=== PATIENT | female | born 1965 | race Hispanic/Latino ===

== ENCOUNTER 2019-02-19 10:55 | Inpatient (IN) | payer BC ==
[~2019-02-19] VITALS: Ht 160 cm; Wt 70.3 kg
[~2019-02-19 10:55] MED LIST: ADDERALL 20 MG20 MG PO; ZOLOFT50 MG PO
--- OUTSIDE RECORDS SUMMARY | 2019-02-19 11:03 | XMS REPORT ---
Author Author [facility] Address Unknown Phone Unavailable Care Team Providers Care Compliance Advisor Name Role Phone Unavailable Unavailable Payers Payer Name Policy Type Policy Number Effective Date Expiration Date Problems This patient has no known problems. Allergies, Adverse Reactions, Alerts Allergy Name Allergy Type Status Severity Reaction(s) Onset Date Inactive Date Treating Clinician Comments No Known Allergies DA Active U 2018-01-09 00:00:00 No Known Allergies DA Active U 2016-08-23 00:00:00 Medications This patient has no known medications. Results Test Description Test Time Test Comments Text Results Atomic Results Result Comments - CT C-SPINE W/O CONTRAST 2018-04-21 18:18:00 Name: SOFI BASURTO [facility] : 1965 Age/S: 52 / F [address] Unit #: [id number] Loc: [place] [address] Phys: Katia Suarez MULTIPLE PRESSURE RIVETER OPERATOR Acct: [id number] Dis Date: Status: REG ER PHONE #: [phone] Exam Date: 04/21/2018 1728 FAX #: [phone] Reason: [facility] EXAMS: CPT CODE: [id number] CT C-SPINE W/O CONTRAST 41208 HISTORY: [facility] TECHNIQUE: Noncontrast 2.[address] of the head, face, and cervical spine. Examination acquired within 24 hours of arrival. Automated exposure control for dose reduction. COMPARISON: MR of the cervical spine March 20, 2016 FINDINGS: No acute hemorrhage. No intracranial mass, mass effect, or midline shift. No CT evidence of acute infarct. Ortega-white matter differentiation is preserved. No hydrocephalus. No extra-axial fluid collection. Visualized paranasal sinuses are clear. Mastoid air cells and middle ear cavities are clear. Orbital contents are unremarkable. Postsurgical changes of craniotomy are noted in the right occipital bone at the level of the posterior fossa. There is a fracture in the inferior wall of the right orbit herniation of the inferior rectus muscle. However the ipsilateral maxillary sinus is clear suggesting that this may be an old finding. The remaining right orbital cevallos are within normal limits. Left orbital cevallos are unremarkable. There is hardware in the maxilla and mandible which may be from repair of a prior fracture. No acute fracture or subluxation of the cervical spine. Degenerative changes of the cervical spine with height loss of the C4-C5 and C5-C6 intervertebral disc spaces and the C5 vertebral body are noted. There is mild left-sided foraminal narrowing at C3-C4 and mild bilateral foraminal narrowing at C5-C6. IMPRESSION: 1. No acute intracranial process. 2. Fracture of the inferior wall of the right orbit with herniation of the inferior rectus muscle. The ipsilateral sinus is clear however suggesting that this may not be an acute finding. 3. Mild degenerative changes of the cervical spine as described above. PAGE 1 Signed Report (CONTINUED) Name: SOFI NELSON [facility] : 1965 Age/S: 52 / F [address] Unit #: [id number] Loc: [place] [address] Phys: Katia Suarez NP Acct: [id number] Dis Date: Status: REG ER PHONE #: [phone] Exam Date: 04/21/2018 1728 FAX #: [phone] Reason: [facility] EXAMS: CPT CODE: [id number] CT C-SPINE W/O CONTRAST 40440 <Continued> at 1818 Reported and signed by: Iker Allred MD CC: Katia Suarez MULTIPLE PRESSURE RIVETER OPERATOR; Pola Hardy Technologist:Lupis Salgado RT(R) CTDI: DLP: Trnscb Date/Time: 04/21/2018 (1817) [email or web address] Orig Print D/T: S: 04/21/2018 (1822) CTDI: DLP: PAGE 2 Signed Report - CT MAXIFAC W/O CNT 2018-04-21 18:18:00 Name: SOFI BASURTO [facility] : 1965 Age/S: 52 / F [address] Unit #: [id number] Loc: [place] [address] Phys: Katia Suarez MULTIPLE PRESSURE RIVETER OPERATOR Acct: [id number] Dis Date: Status: REG ER PHONE #: [phone] Exam Date: 04/21/2018 1728 FAX #: [phone] Reason: R maxillary pain sp fall EXAMS: CPT CODE: [id number] CT MAXIFAC W/O CNT 11904 HISTORY: [facility] TECHNIQUE: Noncontrast 2.[address] of the head, face, and cervical spine. E xamination acquired within 24 hours of arrival. Automated exposure control for dose reduction. COMPARISON: MR of the cervical spine March 20, 2016 FINDINGS: No acute hemorrhage. No intracranial mass, mass effect, or midline shift. No CT evidence of acute infarct. Ortega-white matter differentiation is preserved. No hydrocephalus. No extra-axial fluid collection. Visualized paranasal sinuses are clear. Mastoid air cells and middle ear cavities are clear. Orbital contents are unremarkable. Postsurgical changes of craniotomy are noted in the right occipital bone at the level of the posterior fossa. There is a fracture in the inferior wall of the right orbit herniation of the inferior rectus muscle. However the ipsilateral maxillary sinus is clear suggesting that this may be an old finding. The remaining right orbital cevallos are within normal limits. Left orbital cevallos are unremarkable. There is hardware in the maxilla and mandible which may be from repair of a prior fracture. No acute fracture or subluxation of the cervical spine. Degenerative changes of the cervical spine with height loss of the C4-C5 and C5-C6 intervertebral disc spaces and the C5 vertebral body are noted. There is mild left-sided foraminal narrowing at C3-C4 and mild bilateral foraminal narrowing at C5-C6. IMPRESSION: 1. No acute intracranial process. 2. Fracture of the inferior wall of the right orbit with herniation of the inferior rectus muscle. The ipsilateral sinus is clear however suggesting that this may not be an acute finding. 3. Mild degenerative changes of the cervical spine as described above. PAGE 1 Signed Report (CONTINUED) Name: SOFI BASURTO [facility] : 1965 Age/S: 52 / F [address] Unit #: [id number] Loc: [place] [address] Phys: Katia Suarez MULTIPLE PRESSURE RIVETER OPERATOR Acct: [id number] Dis Date: Status: REG ER PHONE #: [phone] Exam Date: 04/21/2018 1728 FAX #: [phone] Reason: R maxillary pain sp fall EXAMS: CPT CODE: [id number] CT MAXIFAC W/O CNT 93861 <Continued> at 1818 Reported and signed by: Iker Allred MD CC: Katia Suarez NP; Pola Hardy Technologist:Lupis Salagdo RT(R) CTDI: DLP: Trnscb Date/Time: 04/21/2018 (1817) [email or web address] Orig Print D/T: S: 04/21/2018 (1821) CTDI: DLP: PAGE 2 Signed Report - CT HEAD/BRAIN W/O CONT 2018-04-21 18:18:00 Name: SOFI BASURTO [facility] : 1965 Age/S: 52 / F [address] Unit #: [id number] Loc: [place] [address] Phys: Katia Suarez NP Acct: [id number] Dis Date: Status: REG ER PHONE #: [phone] Exam Date: 04/21/2018 1728 FAX #: [phone] Reason: [facility] EXAMS: CPT CODE: [id number] CT HEAD/BRAIN W/O CONT 29401 HISTORY: [facility] TECHNIQUE: Noncontrast 2.[address] of the head, face, and cervical spine. Examination acquired within 24 hours of arrival. Automated exposure control for dose reduction. COMPARISON: MR of the cervical spine March 20, 2016 FINDINGS: No acute hemorrhage. No intracranial mass, mass effect, or midline shift. No CT evidence of acute infarct. Ortega-white matter differentiation is preserved. No hydrocephalus. No extra-axial fluid collection. Visualized paranasal sinuses are clear. Mastoid air cells and middle ear cavities are clear. Orbital contents are unremarkable. Postsurgical changes of craniotomy are noted in the right occipital bone at the level of the posterior fossa. There is a fracture in the inferior wall of the right orbit herniation of the inferior rectus muscle. However the ipsilateral maxillary sinus is clear suggesting that this may be an old finding. The remaining right orbital cevallos are within normal limits. Left orbital cevallos are unremarkable. There is hardware in the maxilla and mandible which may be from repair of a prior fracture. No acute fracture or subluxation of the cervical spine. Degenerative changes of the cervical spine with height loss of the C4-C5 and C5-C6 intervertebral disc spaces and the C5 vertebral body are noted. There is mild left-sided foraminal narrowing at C3-C4 and mild bilateral foraminal narrowing at C5-C6. IMPRESSION: 1. No acute intracranial process. 2. Fracture of the inferior wall of the right orbit with herniation of the inferior rectus muscle. The ipsilateral sinus is clear however suggesting that this may not be an acute finding. 3. Mild degenerative changes of the cervical spine as described above. PAGE 1 Signed Report (CONTINUED) Name: SOFI NELSON [facility] : 1965 Age/S: 52 / F [address] Unit #: [id number] Loc: [place] [address] Phys: Katia Suarez NP Acct: [id number] Dis Date: Status: REG ER PHONE #: [phone] Exam Date: 04/21/2018 1728 FAX #: [phone] Reason: [facility] EXAMS: CPT CODE: [id number] CT HEAD/BRAIN W/O CONT 79098 <Continued> at 1818 Reported and signed by: Iker Allred MD CC: Katia Suarez MULTIPLE PRESSURE RIVETER OPERATOR; Pola Hardy Technologist:Lupis Salgado RT(R) CTDI: DLP: Trnscb Date/Time: 04/21/2018 (1817) [email or web address] Orig Print D/T: S: 04/21/2018 (1821) CTDI: DLP: PAGE 2 Signed Report CBC W/AUTO DIFF 2018-03-22 15:14:00 WHITE BLOOD CELL (test code=WBC) 6.7 K/mm3 4.5-12.5 RED BLOOD CELL (test code=RBC) 4.79 mill/mm3 3.7-5.2 HEMOGLOBIN (test code=HGB) 12.8 gram/dL 11.5-15.5 HEMATOCRIT (test code=HCT) 43.4 % 36.0-46.0 MEAN CELL VOLUME (test code=MCV) 90.6 fL 80-98 MEAN CELL HGB (test code=MCH) 26.7 picogram 27.0-33.0 MEAN CELL HGB CONCETRATION (test code=MCHC) 29.5 gram/dL 33.0-36.0 RED CELL DISTRIBUTION WIDTH (test code=RDW) 12.9 % 11.6-16.2 RED CELL DISTRIBUTION WIDTH SD (test code=RDW-SD) 43.0 fL 37.0-51.0 PLATELET COUNT (test code=PLT) 305 K/mm3 150-450 MEAN PLATELET VOLUME (test code=MPV) 10.3 fL 6.7-11.0 NEUTROPHIL % (test code=NT%) 56.5 % 39.0-69.0 IMMATURE GRANULOCYTE % (test code=IG%) 0.3 % 0.0-5.0 LYMPHOCYTE % (test code=LY%) 35.4 % 25.0-55.0 MONOCYTE % (test code=MO%) 6.1 % 0.0-10.0 EOSINOPHIL % (test code=EO%) 1.3 % 0.0-5.0 BASOPHIL % (test code=BA%) 0.4 % 0.0-1.0 NUCLEATED RBC % (test code=NRBC%) 0.0 % 0-0 NEUTROPHIL # (test code=NT#) 3.76 K/mm3 1.8-7.7 IMMATURE GRANULOCYTE # (test code=IG#) 0.02 x10 3/uL 0-0.03 LYMPHOCYTE # (test code=LY#) 2.36 K/mm3 1.0-5.0 MONOCYTE # (test code=MO#) 0.41 K/mm3 0-0.8 EOSINOPHIL # (test code=EO#) 0.09 K/mm3 0.0-0.5 BASOPHIL # (test code=BA#) 0.03 K/mm3 0.0-0.2 NUCLEATED RBC # (test code=NRBC#) 0.00 K/mm3 0.0-0.1 MANUAL DIFF REQUIRED (test code=IFF) NO [id number] 15:09:00 RUN DATE: 01/11/18 [facility] PAGE 1 RUN TIME: 1509 Specimen Inqui ry RUN USER: INTERFACE PATIENT: SOFI MANNING ACCT #: [id number] LOC: [place] U #: [id number] AGE/SX: 52/F ROOM: RE01/10/18REG DR: Fabrizio Shields MD : 65 BED: DIS: STATUS: [facility] TLOC: SPEC #: [id number] RECD: 01/10/18 STATUS: YOAN REQ #: [id number] ASHLY: 01/10/18- [facility] DR: Fabrizio Shields MD ENTERED: 01/10/18-1316 SP TYPE: STOMACH OTHR DR: Roxanna Hardy MD ORDERED: GROSS COPIES TO: Fabrizio Shields MD [address] [place] [address] Pola Hardy MD [address] [place] [address] PROCEDURES: GROSS (12/23 03/10-1199) TISSUES: 1. DUODENUM, NOS - BX 2. ANTRAL BIOPSY - H -PYLORI 3. SIGMOID - POLYP 4. RECTUM, NOS - BX CLINICAL HISTORY COLLECTION DATE: 01/10/2018 ABDOMINAL PAIN ESOPHAGITIS/G ASTRITIS/HIATAL HERNIA/INTERNAL HEMORRHOIDS/RECTAL POLYPS/ S/P SLEEVE/DIVERTIC ULOSIS FINAL DIAGNOSIS Second portion of duodenum, biopsy: DUO DENAL MUCOSA WITH UNREMARKABLE VILLOUS ARCHITECTURE AND MILD CHRONIC IN FLAMMATION NO ACUTE INFLAMMATORY INFILTRATE PRESENT NO INTRAEPITH ELIAL INFLAMMATORY CELLS NEGATIVE FOR MALIGNANCY Gastric antru m, biopsy: REACTIVE/CHEMICAL GASTROPATHY, MILD FRAGMENTS OF GASTRI C MUCOSA WITH NO SIGNIFICANT PATHOLOGIC ALTERATION NEGATIVE FOR INTESTINA L METAPLASIA CONTINUED ON NEXT PAGE ------ ------RUN DATE: 01/11/18 [facility] PAGE 2 RUN TIME: 1509 Specimen Inquiry RUN USER: INTERFACE SPEC #: [id number] PATIENT: FIDELINA MANNINGA #[id number] (Continued) FINAL DIAGNOSIS (Continued) NEGATIVE FOR HELICOBACTER ORGANISMS NEGATIVE FOR MALIGNANCY Sigmoid colon polyp, biopsy: HYPERPLASTIC POLYP(S) NEGATIVE FOR MALIGNANCY Rectum, biopsy: HYPERPLASTIC POLYP(S) MILD ARTIFACTUAL DISTORTION PRESENT NEGATIVE FOR MALIGNANCY RRB/navin D 4)25275, 73330 MACROSCOPIC The first specimen is received in formalin, labeled with the patient's name, identified as "2nd p ortion duodenum BX," and consists of three sanders biopsy tissues measuring from 0 .2 to 0.6 cm each, entirely submitted as (1). The second specimen is recei andrés in formalin, labeled with the patient's name, identified as "Antrum BX", a nd consists of multiple sanders biopsy tissues measuring up to 0.7 cm in aggregate . It is entirely submitted as (2) for H E and Giemsa stains. The third specimen is received in formalin, labeled with the patient's name, identified as "Sigmoid colon polyp", and consists of sanders biopsy tissue measuring up to 0. 5 cm in aggregate, and is entirely submitted as (3). The fourthe specimen is received in formalin, labeled with the patient's name, identified as "rectu m", and consists of sanders biopsy tissue measuring 0.3 cm in aggregate, submitted as (4). GROSS PERFORMED AT [facility] [address] [place] [address] ([phone] MICROSCOP MICROSCOPIC PERFORMED AT [facility] All of the stains, inclu ding any controls performed, stain appropriately. CONTINUED ON NEXT PAGE RUN DATE: 01/11/18 [facility] PAGE 3 RUN TIME: 1509 Specimen Inquiry RUN USER: INTERFACE SPEC #: [id number] PATIENT: SOFI MANNING #[id number] (Continued)---- -------- MICROSCOPIC (Continued) [facility] [address] [place] [address] [phone])[phone] PERFORMI SITE Diagnosis performed at: [facility], [place] [address] [place] [address] -- Signed SIGNATURE ON FILE Dez Stallworth 01/11/18 1 509 END OF REPORT
[2019-02-19] MEDS ORDERED: GENTAMICIN 80MG/NS 100 ML 200 ML IV ONE (11:09)
[2019-02-19] MEDS ORDERED: PIPER-TAZ 3.375 GM 50 ML ONE (11:09)
[2019-02-19] MEDS ORDERED: INDIGOTINDISULFONATE SODIUM 8 MG/ML AMP IJ ONE (12:35)
[2019-02-19] MEDS ORDERED: IOPAMIDOL 300MG/ML 50ML INFUS..BTL IV ONE (12:35)
[2019-02-19] MEDS ORDERED: BACITRACIN 50,000 UNIT VIAL ONE (12:35)
[2019-02-19] MEDS ORDERED: BUPIVACAINE 0.5%/EPI 30 ML SDV INJ ONE (12:35)
[2019-02-19] MEDS ORDERED: PROPOFOL IV EMULSION 10 MG/ML 20 ML VIAL ONE (12:48)
[2019-02-19] MEDS ORDERED: ONDANSETRON HCL INJ 2MG/ML 2ML 2 MG/ML VIAL ONE (12:48)
[2019-02-19] MEDS ORDERED: SEVOFLURANE INHAL SOLN 250 ML PEN BTL ONE (12:48)
[2019-02-19] MEDS ORDERED: DEXAMETHASONE SOD PHOS INJ 4 MG/ML VIAL ONE (12:48)
[2019-02-19] MEDS ORDERED: LIDOCAINE HCL 2% LOCAL INJ 5 ML SDV VIAL INJ ONE (12:48)
[2019-02-19] MEDS ORDERED: ACETAMINOPHEN 1000 MG/100 ML IV ONE (12:48)
[2019-02-19] MEDS ORDERED: MUPIROCIN 2% OINT 22 GM TUBE ONE (14:49)
[2019-02-19] MEDS: D5.45%NS/KCL 20MEQ 1,000 ML IV SCH ×3 (15:19→23:19)
[2019-02-19] MEDS ORDERED: DIPHENHYDRAMINE HCL 25 MG CAP PO PRN (15:30)
[2019-02-19] MEDS ORDERED: MORPHINE SULFATE 1 MG/ML 30ML PCA IV PRN (15:30)
[2019-02-19] MEDS ORDERED: ONDANSETRON HCL INJ 2MG/ML 2ML 2 MG/ML VIAL IV PRN (15:30)
[2019-02-19] MEDS ORDERED: NALOXONE HCL INJ 0.4 MG/ML AMP IV PRN (15:30)
[2019-02-19] MEDS ORDERED: FENTANYL CITRATE/PF 100MCG/2 ML INJ ONE ×2 (15:50→19:41)
--- NOTE | 2019-02-19 16:33 | NUR ---
pt admitted from pacu to room 115. Pt transferred to bed, laboratory inspector verified with pacu nurse. scd's placed on pt. pt surgical incision dry and intact
[2019-02-19 16:45] VITALS: BP 133/64
--- NOTE | 2019-02-19 17:50 | NUR ---
dr thomas called to reconcile pt home meds
[2019-02-19] MEDS: PHENAZOPYRIDINE HCL 100 MG TAB PO SCH (18:28)
[2019-02-19] MEDS: DOCUSATE SODIUM 100 MG CAP PO SCH (18:28)
[2019-02-19] MEDS ORDERED: BREO ELLIPTA 21 EACH INH (18:37)
--- NOTE | 2019-02-19 18:54 | NUR ---
report given to on coming shift
--- NOTE | 2019-02-19 19:35 | NUR ---
Received change of shift report from AM nurse. Walking rounds completed.
[2019-02-19] MEDS ORDERED: MIDAZOLAM HCL 2 MG/2 ML VIAL ONE (19:41)
[2019-02-19 20:00] VITALS: BP 129/52
[2019-02-19 20:59] LABS: ANION GAP 12.6 mmol/L (8-16); BLOOD UREA NITROGEN 10 mg/dL (7-26); BUN/CREATININE RATIO 15 (6-25); CALCIUM 8.9 mg/dL (8.4-10.2); CARBON DIOXIDE 26 mmol/L (22-29); CHLORIDE 103 mmol/L (98-107); CREATININE, SERUM 0.66 mg/dL (0.57-1.11); EST GLOMERULAR FILTRATION RATE > 60 ML/MIN (60-); GLUCOSE 172 mg/dL (74-118); POTASSIUM 4.6 mmol/L (3.5-5.1); SODIUM 137 mmol/L (136-145)
[2019-02-19] MEDS: PIPER-TAZ 3.375 GM 50 ML IV SCH (22:00)
[2019-02-20] VITALS (7 sets, daily range): BP systolic 104–125; BP diastolic 48–59
--- NOTE | 2019-02-20 00:17 | History and Physical ---
HISTORY OF PRESENT ILLNESS: A 53-year-old female admitted to the hospital after a cystocele repair and the patient is here for postsurgical evaluation and control. The patient has a history of cystocele, taken down for OR for cystocele repair in retrograde. The patient is currently back from the OR and sent home for postsurgical care. PAST MEDICAL HISTORY: History of depression, history of recent upper respiratory tract infection. MEDICATIONS: Medicines she takes at home are Adderall 20 mg twice a day, sertraline 50 mg daily, and alprazolam as needed for anxiety. FAMILY HISTORY: Positive for hypertension in mother and father, and father with coronary artery disease. SOCIAL HISTORY: No EtOH. No IV drug abuse. 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 REVIEW OF SYSTEMS: Negative for chest pain. No shortness of breath. No nausea, vomiting, or diarrhea. No constipation. No rectal bleeding. No hematochezia. No hematemesis. Cystocele present, status post repair. PHYSICAL EXAMINATION: VITAL SIGNS: Temperature is 97.1, pulse of 65, respirations 15, blood pressure is 133/64, pulse oximetry of 100% on room air. HEENT: Normocephalic, atraumatic. The patient is sleepy, post sedation. CVS: S1 and S2 normal. Regular rate and rhythm. ABDOMEN: Surgical scars present. EXTREMITIES: No clubbing, no cyanosis, no edema. ASSESSMENT: Ms. Jaki Sharma, date of is 1965, admitted to the hospital for post surgery for cystocele repair in retrograde. The patient also had a sling. PLAN: Plan is to continue with postsurgical care. SCDs and SHRUTI hoses are applied. Zosyn 3.375 g were given and gentamicin were given presurgically on-call to surgery. The patient will continue to be monitored. CBC and CMP tomorrow and continue with current postoperative care. Further recommendation per clinical course. The patient is medically stable at this time. We will continue monitoring her vitals and analyze on a regular basis. MD JAME Frank/MODL /[id number]
[2019-02-20 05:29] LABS: BASOPHILS % 0.1 % (0.0-1.0); HEMATOCRIT 35.6 % (34.2-44.1); HEMOGLOBIN 11.3 g/dL (12.0-16.0); LYMPHOCYTES # (AUTO) 1.7 (1.0-3.2); LYMPHOCYTES % 17.1 % (18.0-39.1); MEAN CORPUSCULAR HGB CONC 31.7 g/dL (31-35); MEAN CORPUSCULAR VOLUME 88.1 fL (81-99); MONOCYTES # (AUTO) 0.8 (0.2-0.8); MONOCYTES % 7.8 % (4.4-11.3); NEUTROPHILS # (AUTO) 7.4 (2.1-6.9); NEUTROPHILS % 74.7 % (38.7-80.0); PLATELET COUNT 252 x10e3/uL (140-360); RED BLOOD COUNT 4.04 x10e6/uL (3.6-5.1); RED CELL DISTRIBUTION WIDTH 12.3 % (11.7-14.4)
[2019-02-20] MEDS: PIPER-TAZ 3.375 GM 50 ML IV SCH ×3 (06:00→22:00)
--- NOTE | 2019-02-20 07:00 | NUR ---
received am report and rounds done. pt is alert resting in bed, no s/s of distress. call light within reach and instructed pt to call RN for help.
[2019-02-20 07:05] LABS: ANION GAP 11.1 mmol/L (8-16); BLOOD UREA NITROGEN 7 mg/dL (7-26); BUN/CREATININE RATIO 11 (6-25); CALCIUM 8.9 mg/dL (8.4-10.2); CARBON DIOXIDE 27 mmol/L (22-29); CHLORIDE 102 mmol/L (98-107); CREATININE, SERUM 0.62 mg/dL (0.57-1.11); EST GLOMERULAR FILTRATION RATE > 60 ML/MIN (60-); GLUCOSE 127 mg/dL (74-118); POTASSIUM 4.1 mmol/L (3.5-5.1); SODIUM 136 mmol/L (136-145)
[2019-02-20] MEDS: D5.45%NS/KCL 20MEQ 1,000 ML IV SCH ×3 (07:19→23:19)
--- NOTE | 2019-02-20 07:20 | Progress Note ---
DATE: 02/20/2019 SUBJECTIVE: The patient is a 53-year-old, status post cystocele repair and retrograde pyelogram. No complaints today. She has had some flatus and feeling hungry. The patient is on a clear liquid diet, is also on [employer]ORN[employer]UC[employer] on demand. The patient has no chest pain. No shortness of breath. Slept well and has been on IV hydration. Currently, the patient is on a [employer]ORN[employer]OD[employer] morphine pump, naloxone as needed, Zofran as needed, Pyridium and Zosyn were also given. OBJECTIVE: VITAL SIGNS: Temperature is 97.0, pulse 68, respirations of 18, blood pressure is 115/57, pulse oximetry of 96%. HEENT: Normocephalic and atraumatic. Pupils are reactive to light and accommodation. CVS: S1 and S2 are normal. Regular rate and rhythm. ABDOMEN: Nontender, nondistended. Bowel sounds are present. Teixeira catheter to gravity in seen. EXTREMITIES: No clubbing, no cyanosis, and/or no edema. LABORATORY VALUES: White count is 9.92, hemoglobin of 11.3, hematocrit of 35.7. Chemistries are pending. Yesterday's chemistries were within normal limits. ASSESSMENT: A 53-year-old female, status post cystocele repair with retrograde pyelogram. No complaints today. The patient has progressed well. Bowel sounds are positive. The patient should be discharged today pending urological evaluation. Further recommendation per clinical course. We will continue to monitor the patient. This is postoperative day #1 and fluids and advance diet as tolerated. MD JAME Frank/MODL /[id number]
[2019-02-20] MEDS: PHENAZOPYRIDINE HCL 100 MG TAB PO SCH ×3 (09:31→17:31)
[2019-02-20] MEDS: DOCUSATE SODIUM 100 MG CAP PO SCH ×2 (09:31→17:31)
[2019-02-20] MEDS: ACETAMINOPHEN/CODEINE 300MG - 30MG TAB PO PRN (13:35)
--- NOTE | 2019-02-20 13:50 | NUR ---
Visit made by the Spiritual Care Department Pastoral Visitor, Krystin Fuentes. PV provided pastoral presence, hospitality, and supportive listening. Pastoral Visitor informed pt/family of the scope of Assisted Living Nursing Director Services and availability. LOLY GAMBOA Putty Remover Spiritual Care Department O: [phone] Pager: [phone] ([phone] number calling from)
--- NOTE | 2019-02-20 19:10 | NUR ---
Received change of shift report from AM nurse. Walking rounds completed.
[2019-02-21] VITALS: BP 105/52
[2019-02-21] MEDS: ACETAMINOPHEN/CODEINE 300MG - 30MG TAB PO PRN (02:49)
[2019-02-21 04:00] VITALS: BP 117/52
[2019-02-21 05:24] LABS: BASOPHILS % 0.2 % (0.0-1.0); EOSINOPHILS % 0.5 % (0.0-6.0); HEMATOCRIT 36.7 % (34.2-44.1); HEMOGLOBIN 11.5 g/dL (12.0-16.0); LYMPHOCYTES # (AUTO) 3.2 (1.0-3.2); LYMPHOCYTES % 37.6 % (18.0-39.1); MEAN CORPUSCULAR HEMOGLOBIN 27.8 pg (28-32); MEAN CORPUSCULAR HGB CONC 31.3 g/dL (31-35); MEAN CORPUSCULAR VOLUME 88.6 fL (81-99); MONOCYTES # (AUTO) 0.6 (0.2-0.8); MONOCYTES % 7.4 % (4.4-11.3); NEUTROPHILS # (AUTO) 4.5 (2.1-6.9); NEUTROPHILS % 53.9 % (38.7-80.0); PLATELET COUNT 263 x10e3/uL (140-360); RED BLOOD COUNT 4.14 x10e6/uL (3.6-5.1); RED CELL DISTRIBUTION WIDTH 12.5 % (11.7-14.4)
[2019-02-21 05:41] LABS: ANION GAP 13.3 mmol/L (8-16); BLOOD UREA NITROGEN 9 mg/dL (7-26); BUN/CREATININE RATIO 14 (6-25); CALCIUM 9.3 mg/dL (8.4-10.2); CARBON DIOXIDE 28 mmol/L (22-29); CHLORIDE 105 mmol/L (98-107); CREATININE, SERUM 0.64 mg/dL (0.57-1.11); EST GLOMERULAR FILTRATION RATE > 60 ML/MIN (60-); GLUCOSE 95 mg/dL (74-118); POTASSIUM 4.3 mmol/L (3.5-5.1); SODIUM 142 mmol/L (136-145)
[2019-02-21] MEDS: PIPER-TAZ 3.375 GM 50 ML IV SCH (06:00)
--- NOTE | 2019-02-21 07:08 | NUR ---
Received patient lying in bed with eyes open. Respiration even and unlabored. Indwelling valdovinos catheter in placed, intact, with yellow-colored urine to drainage bag. Denies pain at this time.
--- NOTE | 2019-02-21 07:10 | NUR ---
Dr. Yael Whitman ordered to D/C valdovinos catheter and check residual, if more than 100 ml residual to notify him.
[2019-02-21] MEDS: D5.45%NS/KCL 20MEQ 1,000 ML IV SCH (07:19)
--- NOTE | 2019-02-21 07:52 | Progress Note ---
DATE: 02/21/2019 SUBJECTIVE: The patient is a 53-year-old female, who comes in status post a cystocele repair. Pain is controlled. The patient has no bowel movement yet. Bowel sounds are positive. She is eating. No complaints. Teixeira in place. No pain. OBJECTIVE: VITAL SIGNS: Temperature is 98.5, pulse of 84, respirations 17, blood pressure is 105/52, pulse ox of 96%. HEENT: Normocephalic and atraumatic. Pupils are reactive to light and accommodation. CVS: S1 and S2 normal. Regular rate and rhythm. ABDOMEN: Nontender, nondistended. EXTREMITIES: No clubbing, no cyanosis, no edema. Teixeira catheter to gravity. LABORATORY VALUES: White count is 8.4, hemoglobin of 11.5, hematocrit of 36.7. Chemistry; sodium 142, potassium 4.3, BUN of 9, creatinine 0.64. ASSESSMENT: 1. A 53-year-old female, status post cystocele repair with retrograde pyelogram. 2. History of depression. 3. History of anxiety. PLAN: Progression has been noted. The patient to be seen by Dr. Pacheco Whitman today. Plan to be discharged depending on Dr. Whitman's evaluation. This is postoperative day #2. Further recommendation per clinical course. We will continue with advancing diet and we will see her back in clinic in about a week's time. MD JAME Frank/MODL /[id number]
--- NOTE | 2019-02-21 07:55 | NUR ---
Discontinued indwelling valdovinos catheter as ordered, catheter tip intact, denies discomfort. Due to void is at 1355.
[2019-02-21 08:05] VITALS: BP 117/66
[2019-02-21] MEDS: DOCUSATE SODIUM 100 MG CAP PO SCH (08:45)
[2019-02-21] MEDS: PHENAZOPYRIDINE HCL 100 MG TAB PO SCH (08:45)
[2019-02-21] MEDS ORDERED: TYLENOL WITH C1 EACH PO (09:09)
[2019-02-21] MEDS ORDERED: LEVAQUIN500 MG PO (09:09)
--- NOTE | 2019-02-21 09:45 | NUR ---
Discontinue PIV to left FA. Catheter tip intact. No bleeding noted.
--- NOTE | 2019-02-21 10:00 | NUR ---
Patient voided 100 ml urine. Post void residual is 39 ML with bladder scanner.
[2019-02-21 10:03] VITALS: BP 117/66
--- NOTE | 2019-02-21 11:16 | NUR ---
Patient is to discharge to home today as ordered, prescription home meds given. Education given. Verbalized understanding. Transported to private vehicle at this time. Respiration even and unlabored without SOB. all personal belongings are taken.
--- NOTE | 2019-03-26 06:06 | Discharge Summary ---
HOSPITAL COURSE: The patient came in, status post ureterocele repair with sling. The patient was kept in the hospital for pain management. IV fluids were given. Home medication was started. The patient is also followed by Dr. Whitman. Vaginal pouch was discontinued. The patient was feeling better and the patient was discharged home. FINAL DIAGNOSIS: Urethrocele, status post repair with sling. For further information, look into the chart. For medicines on discharge, look into the medical reconciliation sheet. MD JAME Frank/MODL /[id number]
--- NOTE | 2019-04-03 04:51 | Operative Report ---
DATE OF PROCEDURE: SURGEON: Pacheco Whitman MD PREOPERATIVE DIAGNOSES: 1. Stress incontinence. 2. Large cystocele. POSTOPERATIVE DIAGNOSES: 1. Stress incontinence. 2. Large cystocele. OPERATION PERFORMED: 1. Cystocele repair. 2. Utilization of graft and cystocele repair. 3. Pubovaginal sling utilizing homograft. 4. Cystourethroscopy with bilateral ureteral catheterization and retrograde ureteropyelography (separate procedure performed for the hematuria and urinary tract infections). 5. Interpretation of retrograde ureteropyelography. 6. Supervision of fluoroscopy, no radiologist present. ANESTHESIA: General. COMPLICATIONS: None. CLINICAL SUMMARY: Jaki Sharma is a 53-year-old woman with a grade 2 cystocele and grade 2 rectocele. She has urethral hypermobility, interstitial cystitis, urinary tract infections and hematuria. The patient desires repair. She is aware of the risks of bleeding, infection, injury to adjacent structures, persistent incontinence, need for additional procedures, and she elected to proceed. OPERATIVE PROCEDURE IN DETAIL: Informed consent was verified. Jaki Sharma was properly identified and taken to the operating room, placed on the operating table in supine position. Anesthesia was uneventfully begun. The patient was then carefully gently repositioned in the dorsal lithotomy position with all pressure points well padded. Her abdomen, genitalia and perineum were shaved, prepared, and draped in usual sterile fashion. Labial stay sutures were placed. The vaginal speculum was utilized. Marcaine with epinephrine was utilized to infiltrate submucosally in the anterior vaginal wall. An incision was then made in the midline. Bilateral vaginal wall flaps were developed. We pierced the endopelvic fascia laterally taking care to stay as laterally as possible to avoid injuring the periurethral neurovascular complexes. Once the full anterior vaginal wall dissection was carried out, we performed a plicating type of cystocele repair by utilizing heavy Vicryl suture in interrupted fashion from the cephalad most extent of the anterior vaginal wall dissection to the bladder neck. The fascia miky graft was then cut to shape. It was soaked in antibiotic irrigant. A heavy PDS suture was placed in a helical fashion through each end of the graft. The bladder was drained with Teixeira catheter. The [employer] needle system was then utilized to have the posterior surface of the pubis and left hand side pierced through the anterior abdominal wall. We then dragged along with the needles, one pair of PDS suture strands. An identical maneuver was performed on the left hand side. We then secured the graft to support the cystocele utilizing 3-0 chromic suture to prevent migration. We then extended this graft to the distal most portion of the urethra, thus creating a pubovaginal sling. It was secured in this location with 3-0 chromic suture. The [employer] needle system lateral suture passers were then utilized to take one strand of each PDS suture and tunneled it subcutaneously suprapubically to join its contralateral counterpart. The stab wounds suprapubically were approximated with subcuticular Monocryl suture. The vaginal wall was trimmed minimally and the vaginal incision was then approximated with following copious irrigation with heavy Vicryl suture in continuous fashion. Teixeira catheter was withdrawn. The cystoscope was inserted. Panendoscopy revealed no evidence of any injury or any suture within the bladder. There were no suspicious lesions. Bladder neck was unremarkable. Ureteral catheter was used to cannulate each ureter and retrograde ureteropyelograms were performed. Interpretation of retrograde ureteropyelography: Contrast was instilled in retrograde fashion bilaterally. There were no tumors, no stones, no diverticula. Unobstructed drainage was observed bilaterally fluoroscopically. Teixeira catheter was placed. Vaginal packing was placed. The labial stay sutures were removed. Sterile dressings were applied suprapubically. The patient was uneventfully reversed from anesthesia, taken to the recovery room in stable condition. Plans will be to proceed with routine postoperative care and of course ongoing urological followup. aPcheco Whitman MD [place]/MODL /[id number] cc: Pola Hardy MD
== END 2019-02-21 11:16 | disposition home or self-care (01) | DRG 748 ==
LOC: OR 10:55 → MED/SURG 15:19
PROVIDERS: ADMIT Family Medicine; ATTEND Family Medicine
PROC: 0TSD0ZZ Reposition Urethra, Open Approach (ICD-10-PCS; 2019-02-19)
PROC: 0T788ZZ Dilation of Bilateral Ureters, Via Natural or Artificial Opening Endoscopic (ICD-10-PCS; 2019-02-19)
PROC: BT141ZZ Fluoroscopy of Kidneys, Ureters and Bladder using Low Osmolar Contrast (ICD-10-PCS; 2019-02-19)
PROC: 0JUC0JZ Supplement of Pelvic Region Subcutaneous Tissue and Fascia with Synthetic Substitute, Open Approach (ICD-10-PCS; principal; 2019-02-19 13:00)
DX: N81.10 Cystocele, unspecified (principal); N39.3 Stress incontinence (female) (male); F32.9 Major depressive disorder, single episode, unspecified; F41.9 Anxiety disorder, unspecified; N36.41 Hypermobility of urethra
CPT/HCPCS: 36415; 74420; 80048; 85025; 93005; C1752; C1758; J1100; J1580; J2001; J2250; J2270; J2405; J2543; J3010

== ENCOUNTER → 2020-04-25 | Outpatient (CLI) | payer OTHER ==
[~2020-04-25] MED LIST changes: +BREO ELLIPTA 21 EACH INH; +LEVAQUIN500 MG PO; +TYLENOL WITH C1 EACH PO
== END ==
LOC: MRI 13:30
PROVIDERS: ATTEND Anesthesiology
DX: M47.816 Spondylosis without myelopathy or radiculopathy, lumbar region (principal); M54.16 Radiculopathy, lumbar region
CPT/HCPCS: 72050; 72114; 72141; 72148

== ENCOUNTER → 2020-05-13 | Outpatient (CLI) | payer OTHER | LOC: LAB 12:16 | PROVIDERS: ATTEND Physical Medicine & Rehabilitation | DX: Z11.59 Encounter for screening for other viral diseases (principal) | CPT/HCPCS: U0002 ==

== ENCOUNTER → 2020-06-24 | Outpatient (CLI) | payer OTHER | LOC: LAB 12:06 | PROVIDERS: ATTEND Physical Medicine & Rehabilitation | DX: Z11.59 Encounter for screening for other viral diseases (principal) | CPT/HCPCS: U0002 ==

== ENCOUNTER → 2020-07-15 | Outpatient (CLI) | payer OTHER | LOC: LAB 12:15 | PROVIDERS: ATTEND Physical Medicine & Rehabilitation | DX: Z11.59 Encounter for screening for other viral diseases (principal); Z20.822 Contact with and (suspected) exposure to COVID-19 | CPT/HCPCS: U0002 ==

== ENCOUNTER → 2020-09-08 | Outpatient (CLI) | payer OTHER | LOC: US 16:15 | PROVIDERS: ATTEND Family Medicine | DX: N28.1 Cyst of kidney, acquired (principal) | CPT/HCPCS: 76770 ==

== ENCOUNTER → 2020-09-26 | Outpatient (CLI) | payer OTHER ==
[~2020-09-26] MED LIST changes: +IOPAMIDOL 370 MG/ML 200 ML INFUS..BTL INJ ONE; +SODIUM CHLORIDE 0.9% 250ML 250 ML ONE
== END ==
LOC: CT 16:36
PROVIDERS: ATTEND Urology
DX: N13.30 Unspecified hydronephrosis (principal)
CPT/HCPCS: 74178; J7050; Q9967

== ENCOUNTER → 2021-05-01 | Outpatient (CLI) | payer BC ==
[~2021-05-01] MED LIST changes: -IOPAMIDOL 370 MG/ML 200 ML INFUS..BTL INJ ONE; -SODIUM CHLORIDE 0.9% 250ML 250 ML ONE
== END ==
LOC: LAB 06:24
PROVIDERS: ATTEND Family Medicine
DX: Z00.00 Encounter for general adult medical examination without abnormal findings (principal); Z11.1 Encounter for screening for respiratory tuberculosis
CPT/HCPCS: 83036

== ENCOUNTER → 2021-06-26 | Outpatient (CLI) | payer BC | LOC: MRI 08:54 | PROVIDERS: ATTEND Anesthesiology | DX: M47.892 Other spondylosis, cervical region (principal); M47.896 Other spondylosis, lumbar region | CPT/HCPCS: 72141; 72148 ==

== ENCOUNTER → 2021-11-27 | Outpatient (CLI) | payer BC ==
[2021-11-27 07:20] LABS: BASOPHILS % 0.6 % (0.0-1.0); EOSINOPHILS # (AUTO) 0.2 (0.0-0.4); EOSINOPHILS % 2.9 % (0.0-6.0); HEMATOCRIT 40.7 % (34.2-44.1); HEMOGLOBIN 11.9 g/dL (12.0-16.0); LYMPHOCYTES # (AUTO) 2.3 (1.0-3.2); MEAN CORPUSCULAR HEMOGLOBIN 26.6 pg (28-32); MEAN CORPUSCULAR HGB CONC 29.2 g/dL (31-35); MEAN CORPUSCULAR VOLUME 90.8 fL (81-99); MONOCYTES # (AUTO) 0.4 (0.2-0.8); MONOCYTES % 7.8 % (4.4-11.3); NEUTROPHILS # (AUTO) 2.2 (2.1-6.9); NEUTROPHILS % 43.1 % (38.7-80.0); PLATELET COUNT 294 x10e3/uL (140-360); RED BLOOD COUNT 4.48 x10e6/uL (3.6-5.1); RED CELL DISTRIBUTION WIDTH 12.9 % (11.7-14.4)
[2021-11-27 07:47] LABS: ALBUMIN 3.6 g/dL (3.5-5.0); ALBUMIN/GLOBULIN RATIO 1.2 (0.8-2.0); CALCIUM 9.1 mg/dL (8.4-10.2); CREATININE, SERUM 0.75 mg/dL (0.57-1.11)
== END ==
LOC: DX 07:01
PROVIDERS: ATTEND Surgery
DX: Z01.818 Encounter for other preprocedural examination (principal); K21.9 Gastro-esophageal reflux disease without esophagitis; E66.01 Morbid (severe) obesity due to excess calories
CPT/HCPCS: 36415; 74018; 74246; 80053; 85025

== ENCOUNTER → 2021-12-04 | Outpatient (CLI) | payer BC | LOC: MRI 15:07 | PROVIDERS: ATTEND Physician Assistant | DX: M23.91 Unspecified internal derangement of right knee (principal) ==

== ENCOUNTER → 2021-12-31 | Outpatient (CLI) | payer BC | LOC: LAB 06:52 | PROVIDERS: ATTEND Surgery | DX: Z01.818 Encounter for other preprocedural examination (principal); I10 Essential (primary) hypertension; E66.01 Morbid (severe) obesity due to excess calories; Z68.35 Body mass index [BMI] 35.0-35.9, adult ==